=== PATIENT | male | born 1955 | race Two or more races ===

== ENCOUNTER 2016-07-30 09:55 | Emergency (ER) | payer OTHER ==
[~2016-07-30] VITALS: Ht 172.7 cm; Wt 74.8 kg
[2016-07-30] MEDS ORDERED: ROBAXIN-750750 MG PO (11:11)
[2016-07-30] MEDS ORDERED: IBUPROFEN600 MG ORAL (11:11)
[2016-07-30 12:31] VITALS: BP 175/82
--- NOTE | 2016-07-31 06:49 | Emergency Room Report ---
History of Present Illness General Chief Complaint: Lower Extremity Injury Source: Patient Present Illness HPI 61YOM walk-in patient with pain to right side after allegedly tripping and falling at work yesterday. States he slipped on water outside on the floor, landed on lateral aspect of right leg. Didnt brace himself with right hand. Didnt hit head, have LOC. Bradford well yesterday, some "aches and pains" today. Took 400mg ibuprofen with some improvement. Not on ASA or AC. Allergies: Coded Allergies: No Known Allergies (Unverified , 07/30/16) Patient History Past Medical History: none Past Surgical History: none Pertinent Family History: none Social History: Denies: alcohol use, drug use, smoking Immunizations: UTD Reviewed Nursing Documentation: PMH: Agreed, PSxH: Agreed Nursing Documentation-PMH Past Medical History: No Stated History Review of Systems All Other Systems: negative except mentioned in HPI Physical Exam Vital Signs Date Time Temp Pulse Resp B/P Pulse Ox O2 Delivery O2 Flow Rate FiO2 07/30/16 10:10 98.2 68 16 175/82 98 Room Air Sp02 EP Interpretation: reviewed, abnormal General Appearance: normal inspection, well appearing, no apparent distress, alert, GCS 15, non-toxic Head: normocephalic, atraumatic Eyes: bilateral eye EOMI, bilateral eye PERRL ENT: normal ENT inspection, hearing grossly normal, normal voice Neck: normal inspection, full range of motion, supple, no bony tend Respiratory: normal inspection, lungs clear, normal breath sounds, no respiratory distress, no retraction, no wheezing Cardiovascular #1: regular rate, rhythm, no edema Gastrointestinal: normal inspection, normal bowel sounds, non tender, soft, no guarding, no hernia Genitourinary: no CVA tenderness Musculoskeletal: normal inspection, back normal, normal range of motion, no calf tenderness, Dalton's Sign negative, other - Patient's right lower extremity/ hip/pelvis exposed. No ecchymoses or bruising. Mild ttp to right posterior thigh. No bony ttp or deformity. Full ROM of all joints Neurologic: normal inspection, alert, oriented x3, responsive, director hair III-XII nml as tested, motor strength/tone normal, speech normal Psychiatric: normal inspection, judgement/insight normal, mood/affect normal Skin: normal inspection, normal color, no rash Lymphatic: normal inspection Medical Decision Making Diagnostic Impression: Primary Impression: Musculoskeletal back pain ER Course 61YOM with MSK pain from accidental slip and fall at work VS notable for hypertension, likely from pain vs known essential HTN No bony ttp on exam warranting additional imaging at this time Rx Ibuprofen, Robaxin Workers comp paperwork completed DC home Last Vital Signs Date Time Temp Pulse Resp B/P Pulse Ox O2 Delivery O2 Flow Rate FiO2 07/30/16 12:31 98.2 16 175/82 98 Room Air 07/30/16 10:10 68 Status: improved Disposition: HOME, SELF-CARE Condition: Improved Scripts Ibuprofen* (MOTRIN*) 600 Mg Tablet 600 MG ORAL THREE TIMES A DAY for For Pain for 7 Days, #30 TAB 0 Refills Prov: JOHNNY NAVARRO M.D. 07/30/16 Methocarbamol* (ROBAXIN-750*) 750 Mg Tablet 750 MG PO TID for 7 Days, #30 TAB 0 Refills Prov: JOHNNY NAVARRO M.D. 07/30/16 Patient Instructions: Musculoskeletal Pain Additional Instructions: - Take robaxin with ibuprofen up to 3x a day for pain JHONNY NAVARRO M.D. Jul 31, 2016 06:49
== END 2016-07-30 12:32 | disposition home or self-care (01) ==
LOC: EMR 10:32
DX: M54.9 Dorsalgia, unspecified (principal); I10 Essential (primary) hypertension
CPT/HCPCS: 99284